=== PATIENT | female | born 1960 | race Caucasian/White ===

== ENCOUNTER 2017-12-04 13:28 | Emergency (ER) | payer MEDICAID ==
--- NOTE | 2017-12-04 15:14 | Diagnostic Imaging Report ---
Right shoulder (3 views) HISTORY: Pain No acute bony abnormalities. No fractures. No dislocation. Mild hypertrophic degenerative changes noted about the acromioclavicular joint. There is a dense focus of calcification within the soft tissues adjacent to the lateral aspect of the humeral head. The findings are consistent with changes of calcific tendinitis. IMPRESSION: 1. Findings consistent with calcific tendinitis 2. Degenerative changes 3. No acute abnormalities
--- NOTE | 2017-12-04 15:15 | Diagnostic Imaging Report ---
Right clavicle (2 views) HISTORY: Pain No acute abnormalities. No fractures. Hypertrophic degenerative bony changes noted about the acromioclavicular joint. Dense focus of calcification is seen within the soft tissues adjacent to the lateral aspect of the humeral head. Changes consistent with calcific tendinitis. IMPRESSION: 1. No acute bony abnormalities 2. Degenerative changes 3. Findings consistent with calcific tendinitis in the vicinity of the supraspinatus tendon.
--- NOTE | 2017-12-04 15:33 | ED Physician Chart ---
ED Chief Complaint/HPI - Patient Information Date Seen:: 12/04/17 Time Seen:: 13:45 Chief Complaint:: Right Shoulder Pain History of Present Illness:: onset x 3 days of intermittent, dull, MS type Right Shoulder Pain after a pulling type of injury; pt denies LOC, H/As, S/T, neck pain, C/P, SOB, Abd. Pain , cough, A/N/V/D/C, bleeding, paresthesias, weakness, dizziness, visual or gait changes, vertigo, or urinary s/s; pt is 10 years post-menopause; pt denies ; pt's last tetanus shot: < 5 years; UTD Allergies:: Allergies Allergy/AdvReac Type Severity Reaction Status Date / Time niacin Allergy Verified 12/04/17 13:45 Vitals:: Vital Signs - 8 hr 12/04/17 13:48 Temp 98.4 F HR 83 RR 16 BP 148/99 O2 Sat % 99 Historian:: Patient Review:: Nurse's Note Reviewed ED Review of Systems - Review of Systems General/Constitutional: No fever, No chills, No weight loss, No weakness, No diaphoresis, No edema, No loss of appetite Skin: No skin lesions, No rash, No bruising Head: No headache, No light-headedness Eyes: No loss of vision, No pain, No diplopia ENT: No earache, No nasal drainage, No sore throat, No tinnitus Neck: No neck pain, No swelling, No thyromegaly, No stiffness, No mass noted Cardio Vascular: No chest pain, No palpitations, No PND, No orthopnea, No edema Pulmonary: No SOB, No cough, No sputum, No wheezing GI: No nausea, No vomiting, No diarrhea, No pain, No melena, No hematochezia, No constipation, No hematemesis G/U: No dysuria, No frequency, No hematuria, No nacturia Foreclosure Home Inspector: No vaginal discharge, No abnormal vaginal bleed, No contraction Musculoskeletal: Bone or joint pain, No back pain, Muscle pain Endocrine: No polyuria, No polydipsia Psychiatric: No prior psych history, No depression, No anxiety, No suicidal ideation, No homicidal ideation, No auditory hallucination, No visual hallucination Hematopoietic: No bruising, No lymphadenopathy Allergic/Immuno: No urticaria, No angioedema Neurological: No syncope, No focal symptoms, No weakness, No paresthesia, No headache, No seizure, No dizziness, No confusion, No vertigo ED Past Medical History - Past Medical History Obtainable: Yes Past Medical History: No significant medical hx Family History: None Social History: Non Smoker, No Alcohol, No Drug Use, Surgical History: Hernia Psychiatricy History: None Medication: Reviewed Family Medical History - Family Member Mother Living Status: ED Physical Exam - Physical Examination General/Constitutional: Awake, Well-developed, well-nourished, Alert, No distress, GCS 15, Non-toxic appearing, Ambulatory Head: Atraumatic Eyes: Lids, conjuctiva normal, PERRL, EOMI Skin: Nl inspection, No rash, No skin lesions, No ecchymosis, Well hydrated, No lymphadenopathy ENMT: External ears, nose nl, TM canals nl, Nasal exam nl, Lips, teeth, gums nl , Oropharynx nl, Tonsils nl Neck: Nontender, Full ROM w/o pain, No JVD, No nuchal rigidity, No bruit, No mass, No stridor Other Neck comments:: supple; no meningeal signs; no cervical tenderness; no bruits Respiratory: Nl effort/Exclusion, Clear to Auscultation, No Wheeze/Rhonchi/Rales Cardio Vascular: RRR, No murmur, gallop, rubs, NL S1 S2, Carotid/Femoral/Distal pulses equal bilaterally GI: No tenderness/rebounding/guarding, No organomegaly, No hernia, Normal BS's, Nondistended, No mass/bruits, No McBurney tenderness, Rectum exam nl Other GI comments:: no pulsatile masses : No CVA tenderness Extremities: No tenderness or effusion, Full ROM, normal strength in all extremities, No edema, Normal digits & nails Other Extremities comments:: Right Shoulder: Full Active ROMs; + Tenderness upon all PROMs; no loss of ROMs; no ligament instability; good motor, tendon, and sensory functions; good NV functions Neuro/Psych: Alert/oriented, DTR's symmetric, Normal sensory exam, Normal motor strength, Judgement/insight normal, Mood normal, Normal gait, No focal deficits Other Neuro/Psych comments:: no focal signs Misc: Normal back, No paraspinal tenderness ED Labs/Radiology/EKG Results - Lab Results Results: Laboratory Tests 12/04/17 14:34 POC Ur Test Negative Comments:: Test: Negative - Radiology Results Comments:: NAD; No Fx/Dislocations ED Septic Shock - . Is Septic Shock (SBP<90, OR Lactate>4 mmol\L) present?: No - <6hrs of presentation: Vital Signs: Vital Signs - 8 hr 12/04/17 13:48 Temp 98.4 F HR 83 RR 16 BP 148/99 O2 Sat % 99 ED Reassessment (Disposition) - Reassessment Reassessment:: pt is asymoptomatic upon discharge Reassessment Condition:: Improved - Diagnosis Diagnosis:: Right Shoulder Pain; Right Shoulder Sprains and Strains - Aftercare/Follow up Instructions Aftercare/Follow-Up Instructions:: Counseled pt regarding lab results/diagnosis & need follow up, Refer to Discharge Instructions, Counseled pt & family regarding lab results/diagnosis & need follow up - Patient Disposition Discharge/Transfer:: Home Condition at Disposition:: Stable, Improved (RTER prn if existing s/s reoccur and/or get worse and/or any other new s/s occur; X-Rays Instructions; ACIs given for all above Dx; Refer to Orthopedist/Application Software Engineer KALPANA; F/U with PMD in one day or prn; RTER prn if concerned) ED Discharge Plan - Patient Disposition Admit/Discharge/Transfer: PT DISCHARGED HOME Condition at Disposition: Stable Instructions: Shoulder Sprain
== END 2017-12-04 15:38 | disposition home or self-care (01) ==
LOC: ER 13:28
DX: S43.401A Unspecified sprain of right shoulder joint, initial encounter (principal); S46.911A Strain of unspecified muscle, fascia and tendon at shoulder and upper arm level, right arm, initial encounter; Z88.8 Allergy status to other drugs, medicaments and biological substances; X50.9XXA Other and unspecified overexertion or strenuous movements or postures, initial encounter; Y93.89 Activity, other specified; Y92.89 Other specified places as the place of occurrence of the external cause; Y99.8 Other external cause status
CPT/HCPCS: 73000-TC-RT; 73030-TC-RT; 81025-TC; Z7502